=== PATIENT | male | born 1995 | race African-American/Black ===

== ENCOUNTER 2017-08-05 10:52 | Inpatient (IN) | payer SELFPAY ==
[~2017-08-05] VITALS: Ht 195.6 cm; Wt 104.8 kg
[2017-08-05] MEDS ORDERED: CEFTRIAXONE 2 G PREMIX 50 ML IV ONE (13:45)
[2017-08-05] MEDS ORDERED: VANCOMYCIN 1 G PREMIX 200 ML IV SCH ×2 (13:45→18:45)
[2017-08-05 14:15] LABS: BASOPHILS % 0.4 % (0.0-2.0); EOSINOPHILS % 1.7 % (0.0-5.0); HEMATOCRIT. 42.9 % (42.0-52.0); HEMOGLOBIN. 14.4 g/dL (14.0-18.0); LYMPHOCYTES % 21.1 % (20.0-50.0); MEAN CORPUSCULAR HEMOGLOBIN 30.7 pg (28.0-32.0); MEAN CORPUSCULAR VOLUME 91.4 fL (80.0-94.0); MEAN PLATELET VOLUME 9.5 fl (7.4-10.4); MONOCYTES % 8.5 % (2.0-8.0); NEUTROPHILS % 68.3 % (40.0-76.0); PLATELET 167 x1000/uL (130-400); RED BLOOD CELL COUNT 4.69 mill/uL (4.7-6.1); RED CELL DISTRIBUTION WIDTH 12.9 % (11.6-14.6)
[2017-08-05] MEDS ORDERED: MORPHINE SULFATE 4 MG/ML CPJ (NOT FOR IM USE) IV ONE (14:15)
[2017-08-05] MEDS ORDERED: ONDANSETRON HCL 4MG/2ML VIAL IV ONE (14:15)
[2017-08-05 14:22] LABS: CHLORIDE 102 mEq/L (98-107)
[2017-08-05] MEDS ORDERED: CLONIDINE 0.1MG TABLET PO PRN (18:45)
[2017-08-05] MEDS ORDERED: NA PHOS,M-B/NA PHOS,DI-BA ENEMA 118ML PR PRN (18:45)
[2017-08-05] MEDS ORDERED: ACETAMINOPHEN 325MG TABLET PO PRN (18:45)
[2017-08-05] MEDS ORDERED: ONDANSETRON HCL 4MG/2ML VIAL IV PRN (18:45)
[2017-08-05] MEDS ORDERED: NITROGLYCERIN 0.4MG TABLET SL SL PRN (18:45)
[2017-08-05] MEDS ORDERED: GUAIFENESIN 200MG/10ML SUGAR FREE UDC PO PRN (18:45)
[2017-08-05] MEDS ORDERED: MAGNESIUM/ALUMINUM HYDROXIDE/SIMETHICONE 30ML UDC PO PRN (18:45)
[2017-08-05] MEDS ORDERED: DOCUSATE SODIUM 100MG CAPSULE PO PRN (18:45)
[2017-08-05] MEDS ORDERED: PIPERACILLIN/TAZ 3.375G PREMIX 50 ML IV SCH (18:45)
[2017-08-05] MEDS ORDERED: DIPHENHYDRAMINE 50MG/ML VIAL IV PRN (18:45)
[2017-08-05] MEDS ORDERED: LORAZEPAM 0.5MG TABLET PO PRN (18:56)
[2017-08-05] MEDS ORDERED: IPRATROPIUM/ALBUTEROL 0.5-3(2.5)MG/3ML NEB INH PRN (19:02)
[2017-08-05 19:30] VITALS: BP 140/79
[2017-08-05] MEDS ORDERED: POTASSIUM CHLORIDE 20MEQ/PACKET PO NR (19:45)
[2017-08-05 20:00] VITALS: BP 125/70
[2017-08-05] MEDS: KETOROLAC 15MG/ML VIAL IV PRN (20:05)
[2017-08-05] MEDS ORDERED: ZOLPIDEM TARTRATE 5MG TABLET PO PRN (21:00)
[2017-08-05] MEDS: PIPERACILLIN/TAZ 3.375G PREMIX 50 ML IV SCH (21:58)
[2017-08-05] MEDS: VANCOMYCIN 1,500 MG in SODIUM CHLORIDE 0.9% 250 ML IV SCH (22:44)
[2017-08-06] VITALS: BP 128/76
[2017-08-06 04:00] VITALS: BP 131/78
[2017-08-06] MEDS: PIPERACILLIN/TAZ 3.375G PREMIX 50 ML IV SCH (06:03)
[2017-08-06] MEDS: VANCOMYCIN 1,500 MG in SODIUM CHLORIDE 0.9% 250 ML IV SCH (06:45)
[2017-08-06 08:00] VITALS: BP 118/61
[2017-08-06] MEDS ORDERED: MUPIROCIN 2% OINT 22GM TOP SCH (11:00)
[2017-08-06 12:00] VITALS: BP 123/60
[2017-08-06] MEDS ORDERED: PIPERACILLIN/TAZ 3.375G PREMIX 50 ML IV SCH (12:00)
[2017-08-06 12:17] LABS: HEMATOCRIT. 40.9 % (42.0-52.0); HEMOGLOBIN. 13.8 g/dL (14.0-18.0); MEAN CORPUSCULAR HEMOGLOBIN 30.6 pg (28.0-32.0); MEAN CORPUSCULAR VOLUME 90.8 fL (80.0-94.0); MEAN PLATELET VOLUME 9.3 fl (7.4-10.4); PLATELET 154 x1000/uL (130-400); RED BLOOD CELL COUNT 4.51 mill/uL (4.7-6.1)
[2017-08-06 12:45] LABS: CHLORIDE 104 mEq/L (98-107)
[2017-08-06 12:57] LABS: VANCOMYCIN TROUGH 14.3 ug/mL (5.0-10.0)
[2017-08-06] MEDS: KETOROLAC 15MG/ML VIAL IV PRN (14:22)
[2017-08-06 15:10] VITALS: BP 123/60
[2017-08-06 16:00] VITALS: BP 167/77
[2017-08-06 18:02] LABS: ATYPICAL LYMPHOCYTES 2
[2017-08-06 18:06] LABS: PLATELET ESTIMATE NORMAL
[2017-08-06] MEDS ORDERED: VANCOMYCIN 2,000 MG in SODIUM CHLORIDE 0.9% 500 ML IV SCH (23:00)
== END 2017-08-06 17:00 | disposition home or self-care (01) | DRG 380 ==
LOC: ER 10:52 → 6EST 13:36 → ENRESERV 17:22 → 6EST 19:50
PROVIDERS: ADMIT Internal Medicine; ATTEND Internal Medicine
DX: L97.529 Non-pressure chronic ulcer of other part of left foot with unspecified severity (principal); E87.6 Hypokalemia; L03.032 Cellulitis of left toe; F12.10 Cannabis abuse, uncomplicated; F17.210 Nicotine dependence, cigarettes, uncomplicated
CPT/HCPCS: 36415; 73630; 80048; 80053; 80202; 83036; 85025; 85651; 87040; 87070; 87077; 87205; 96365; 96366; 96368; 96375; 99285; J0696; J1885; J2270; J2405; J2543; J3370; J7040; J7050

== ENCOUNTER → 2020-05-05 | Emergency (ER) | payer MEDICAID ==
[~2020-05-05] VITALS: Ht 188 cm; Wt 123.0 kg
[2020-05-05 13:05] VITALS: BP 133/82
[2020-05-05 13:52] LABS: BASOPHILS % 0.2 % (0.0-2.0); EOSINOPHILS % 0.6 % (0.0-5.0); HEMATOCRIT. 42.6 % (42.0-52.0); HEMOGLOBIN. 13.7 g/dL (14.0-18.0); LYMPHOCYTES % 14.1 % (20.0-50.0); MEAN CORPUSCULAR HEMOGLOBIN 28.9 pg (28.0-32.0); MEAN PLATELET VOLUME 9.4 fl (7.4-10.4); MONOCYTES % 9.8 % (2.0-8.0); NEUTROPHILS % 75.3 % (40.0-76.0); PLATELET 207 x1000/uL (130-400); RED BLOOD CELL COUNT 4.74 mill/uL (4.7-6.1); RED CELL DISTRIBUTION WIDTH 13.1 % (11.6-14.6)
[2020-05-05 13:58] LABS: CHLORIDE 101 mEq/L (98-107)
[2020-05-05 14:07] LABS: PROTHROMBIN TIME 10.8 sec (9.6-11.0)
== END | disposition home or self-care (01) ==
LOC: ER 12:39
DX: R53.1 Weakness (principal); F12.10 Cannabis abuse, uncomplicated; Z21 Asymptomatic human immunodeficiency virus [HIV] infection status
CPT/HCPCS: 36415; 71045; 80053; 85025; 85610; 86850; 86900; 86901; 87040; 93005; 99285; Z7610